=== PATIENT | female | born 1950 | race Caucasian/White ===

== ENCOUNTER 2021-12-22 10:01 | Day surgery (SDC) | payer MEDICARE ==
[~2021-12-22] VITALS: Ht 154.9 cm; Wt 77.7 kg
[~2021-12-22 10:01] MED LIST: ACET500 PO; AMLO5 PO; AMOX500; MYCO250; MYRBETRIQ25 MG; NAPR500 PO; OLME40 PO; Omeprazole20 M1 PO; PYRI60
--- NOTE | 2021-12-22 10:49 | NUR ---
12/22/21 1049 LIZ MCCLOUD 2 ATTEMPTS OT IV. FIRST ATTEMPT MY MA IN R FOREARM INFILTRATED. SECOND ATTEMPT BY MA IN L HAND SUCCESSFUL.
== END 2021-12-22 13:00 | disposition home or self-care (01) ==
LOC: ORSCSDS 10:01
PROVIDERS: Internal Medicine Gastroenterology
PROC: 0DB78ZX Excision of Stomach, Pylorus, Via Natural or Artificial Opening Endoscopic, Diagnostic (ICD-10-PCS; principal; 2021-12-22 11:15)
PROC: 0DBK8ZX Excision of Ascending Colon, Via Natural or Artificial Opening Endoscopic, Diagnostic (ICD-10-PCS; principal; 2021-12-22 11:15)
PROC: 0DBP8ZX Excision of Rectum, Via Natural or Artificial Opening Endoscopic, Diagnostic (ICD-10-PCS; principal; 2021-12-22 11:15)
PROC: 0DBL8ZX Excision of Transverse Colon, Via Natural or Artificial Opening Endoscopic, Diagnostic (ICD-10-PCS; principal; 2021-12-22 11:15)
DX: Z12.11 Encounter for screening for malignant neoplasm of colon (principal); Z86.010 Personal history of colon polyps; Z83.79 Family history of other diseases of the digestive system; D12.2 Benign neoplasm of ascending colon; D12.3 Benign neoplasm of transverse colon; D12.8 Benign neoplasm of rectum; K21.9 Gastro-esophageal reflux disease without esophagitis; R13.14 Dysphagia, pharyngoesophageal phase; K57.30 Diverticulosis of large intestine without perforation or abscess without bleeding; G70.00 Myasthenia gravis without (acute) exacerbation; K64.8 Other hemorrhoids; I10 Essential (primary) hypertension; E03.9 Hypothyroidism, unspecified; G51.0 Bell's palsy; Z79.899 Other long term (current) drug therapy; E78.5 Hyperlipidemia, unspecified; E11.9 Type 2 diabetes mellitus without complications; E66.9 Obesity, unspecified; Z68.32 Body mass index [BMI] 32.0-32.9, adult
CPT/HCPCS: 88305; 88342; J2704; J7120

== ENCOUNTER 2025-05-13 10:12 | Day surgery (SDC) | payer MEDICARE ==
[~2025-05-13] VITALS: Ht 154.9 cm; Wt 67.4 kg
[~2025-05-13 10:12] MED LIST changes: +LOSA50 PO; +SPIR25 PO
[2025-05-13] MEDS ORDERED: Calcium Carbon500 MG (11:50)
[2025-05-13 14:46] VITALS: BP 131/64
== END 2025-05-13 15:00 | disposition home or self-care (01) ==
LOC: ORSCSDS 10:12
PROVIDERS: Internal Medicine Gastroenterology
PROC: 3E0H8KZ Introduction of Other Diagnostic Substance into Lower GI, Via Natural or Artificial Opening Endoscopic (ICD-10-PCS; principal; 2025-05-13 12:00)
PROC: 0DBL8ZX Excision of Transverse Colon, Via Natural or Artificial Opening Endoscopic, Diagnostic (ICD-10-PCS; principal; 2025-05-13 12:00)
DX: R19.7 Diarrhea, unspecified (principal); Z86.0101 Personal history of adenomatous and serrated colon polyps; Z80.0 Family history of malignant neoplasm of digestive organs; D12.3 Benign neoplasm of transverse colon; K63.89 Other specified diseases of intestine; K64.4 Residual hemorrhoidal skin tags; K57.30 Diverticulosis of large intestine without perforation or abscess without bleeding; G70.00 Myasthenia gravis without (acute) exacerbation; I10 Essential (primary) hypertension; G51.0 Bell's palsy; K21.9 Gastro-esophageal reflux disease without esophagitis; E07.9 Disorder of thyroid, unspecified; Z79.899 Other long term (current) drug therapy
CPT/HCPCS: 88305; J2704; J7120